=== PATIENT | male | born 1995 | race Caucasian/White ===

== ENCOUNTER 2016-11-08 17:42 | Emergency (ER) | payer OTHER | END 2016-11-08 19:49 | disposition home or self-care (01) | LOC: D.ER 17:42 | DX: S93.401A Sprain of unspecified ligament of right ankle, initial encounter (principal); V44.5XXA Car driver injured in collision with heavy transport vehicle or bus in traffic accident, initial encounter; Y92.410 Unspecified street and highway as the place of occurrence of the external cause; S39.012A Strain of muscle, fascia and tendon of lower back, initial encounter ==